=== PATIENT | female | born 1940 | race African-American/Black ===

== ENCOUNTER 2020-05-31 17:37 | Inpatient (IN) | payer MEDICARE ==
[2020-05-31 17:53] VITALS: BMI 23.1
[2020-05-31] MEDS ORDERED: Senokot S 8.6-50 MG TAB PO PRN (19:02)
[2020-05-31] MEDS ORDERED: Acetaminophen 325 MG TAB PO PRN (19:02)
[2020-05-31] MEDS ORDERED: Calcium Carbonate 500 MG ChewTAB PO PRN (19:03)
[2020-05-31] MEDS ORDERED: Ondansetron ODT 4 MG TAB PO PRN (19:03)
[2020-05-31] MEDS ORDERED: Dextrose 5% in Water 1,000 ML IV PRN (20:15)
[2020-05-31] MEDS ORDERED: Dextrose 50% Abboject 50 ML SYRINGE SLOW IVP PRN (20:15)
[2020-05-31] MEDS ORDERED: Insulin Regular 300 UNITS/3 ML VIAL SC PRN (20:15)
[2020-05-31] MEDS: HumuLIN 70/30 (300 UNITS/3 ML VIAL) SC SCH (21:47)
[2020-05-31] MEDS: Sacubitril 49 MG/Valsartan 51 MG TABLET PO SCH (21:48)
[2020-05-31] MEDS: Apixaban 5 MG TAB PO SCH (21:48)
--- NOTE | 2020-06-01 00:36 | HP ---
HISTORY OF PRESENT ILLNESS: Ms. Titus is a very pleasant 80-year-old black female, who lives in [place], [place]. She unfortunately fell at her grandson's house and had a resultant left femoral hip fracture. She was taken to emergency room, evaluated, and found to need open reduction and internal fixation done. The patient had a total hip done by Dr. Miranda and postoperatively she has actually done very well. She was transferred to inpatient rehab for physical therapy and occupational therapy at [facility] swing bed. PAST MEDICAL HISTORY: 1. Diabetes, type 2. 2. Hypertension. 3. Diastolic dysfunction with ejection fraction of 10% to 15%. 4. Atrial fibrillation. 5. Hypothyroidism. 6. Presently wearing a LifeVest, waiting on a cardiac defibrillator. PAST SURGICAL HISTORY: 1. Hysterectomy. 2. Total left hip. SOCIAL HISTORY: 1. Patient denies smoking, denies drinking, and denies drug use. 2. The patient lives with her son and is . She has actually been very active until she fell. ALLERGIES: NO KNOWN DRUG ALLERGIES. PRESENT MEDICATIONS: Reveal the patient is presently on the following. 1. Apixaban 5 mg b.i.d. 2. Fluoxetine 20 mg daily. 3. Lasix 40 mg q.a.m. 4. Humulin 70/30 15 units subcu b.i.d. 5. Metoprolol 50 mg b.i.d. 6. Potassium chloride 20 mEq q.a.m. 7. Entresto 49-51 half a tab b.i.d. 8. Spironolactone 12.5 mg q.a.m. 9. Tramadol 50 mg q.6 hours p.r.n. 10. Tylenol 1000 mg q.6 hours scheduled. REVIEW OF SYSTEMS: CONSTITUTIONAL: The patient states she is doing well and has no complaints of change in constitutional signs, including fever, chills, or night sweats. HEENT: The patient denies change in vision or hearing. CHEST: The patient denies shortness of breath, cough, cold, congestion, or wheezing. HEART: The patient denies palpitations, chest pain, or fast or slow heartbeat or irregular heartbeat. It is noted that the patient has ejection fraction of 10% to 15%, and has very poor stamina. ABDOMEN: Denies nausea, vomiting, diarrhea, or constipation. : Denies frequency or urgency. EXTREMITIES: Complains of less pain in her left hip since it has been repaired. PHYSICAL EXAMINATION: VITAL SIGNS: Reveal blood pressure 122/65, pulse 64, respirations 20, O2 saturation 99% on room air, and T-max 97.5. GENERAL: On physical exam, this is a well-developed, well-nourished, very pleasant 80-year-old black female, in no apparent distress at this time. HEENT EXAM: Reveals normocephalic and nontraumatic cranium. The pupils are equally round and reactive. Extraocular movements are intact. Nose and throat are slightly dry, but clear. NECK: Supple without masses, nodes, or bruits. CHEST: Clear to auscultation. No rales, no rhonchi, no wheezes, and no cough noted. HEART: Reveals a regular rate and rhythm, without murmurs, gallops, or rubs. ABDOMEN: Soft and nontender, without organomegaly. Normal bowel sounds are noted. No rebound or guarding is noted. EXTREMITIES: Reveal left hip, not very tender with sera, having no redness, oozing, or irritation. Open reduction internal fixation has already been done. NEUROLOGIC: No focal deficits. ASSESSMENT: 1. Left acute femoral neck fracture. 2. Diastolic congestive heart failure with ejection fraction of 10% to 15%. 3. LifeVest in place. 4. History of diabetes, type 2. 5. Hyperglycemia. 6. Hypertension. 7. Atrial fibrillation. 8. Hypothyroidism. PLAN: 1. The patient has been admitted to [facility] for physical therapy and occupational therapy. 2. We will continue present medications. 3. We will continue the patient's LifeVest to be worn at all times. 4. Stress ulcer prophylaxis. 5. Decubitus precautions. 6. DVT prophylaxis per Primary Service. 7. Physical therapy and occupational therapy. Job ID: [id number] MTDD
[2020-06-01] MEDS: Acetaminophen 500 MG TAB PO SCH ×5 (01:37→23:44)
[2020-06-01 05:17] LABS: #Basophils 0.1 thou/uL (0.0-0.2); #Eosinphils 0.3 thou/uL (0.0-0.7); #Lymphocytes 1.4 thou/uL (1.20-3.40); #Monocytes 0.8 thou/uL (0.11-0.59); #Neutrophils 3.2 thou/uL (1.40-6.50); %Basophils 2.2 % (0.0-1.0); %Eosinophils 5.6 % (0.0-10.0); %Lymphocytes 23.7 % (21.0-51.0); %Monocytes 12.9 % (0.0-10.0); %Neutrophils 55.6 % (42.0-75.0); Mean Corpuscular HGB CONC 31.4 g/dL (32.0-36.0); Mean Corpuscular Hemoglobin 27.3 pg (27.0-31.0); Mean Corpuscular Volume 87.1 fL (78.0-98.0); Mean Platelet Volume 8.5 fL (7.4-10.4); Platelet Count 362 thou/uL (130-400); RBC Distribution Width 11.8 % (11.5-14.5); Red Blood Cell (RBC) Count 3.67 mill/uL (4.20-5.40); White Blood Cell (WBC) Count 5.8 thou/uL (4.8-10.8)
[2020-06-01 05:37] LABS: ALT (SGPT) 7 U/L (8-55); AST (SGOT) 11 U/L (5-34); Albumin 3.5 g/dL (3.4-4.8); Alkaline Phosphatase 101 U/L (40-110); Anion Gap 15 mmol/L (10-20); BUN (Urea Nitrogen) 28 mg/dL (9.8-20.1); Bilirubin, Total 0.2 mg/dL (0.2-1.2); Calc. Creatinine Clearance 53 mL/min (70-130); Calcium 9.4 mg/dL (7.8-10.44); Carbon Dioxide 25 mmol/L (23-31); Chloride 99 mmol/L (98-107); Estimated GFR-MDRD 72; Globulin 3.8 g/dL (2.4-3.5); Glucose 130 mg/dL (83-110); Potassium 4.5 mmol/L (3.5-5.1); Protein, Total 7.3 g/dL (6.0-8.3); Sodium 134 mmol/L (136-145)
[2020-06-01] MEDS: traMADol HCl 50 MG TAB PO PRN ×2 (05:46→12:27)
[2020-06-01 06:26] LABS: Bilirubin Negative (Negative); Blood, Urine Negative (Negative); Clarity Clear (Clear); Glucose, Urine (Dipstick) Negative (Negative); Ketone, Urine Negative (Negative); Leukocyte Trace (Negative); Nitrite Negative (Negative); Protein, Urine (Dipstick) Negative (Neg-Trace)
[2020-06-01 06:30] LABS: Bacteria/HPF Rare-Few HPF (None Seen); RBC/HPF None Seen HPF (0-3); Squamous Epithelial 0-3 HPF (0-3)
[2020-06-01] MEDS: Spironolactone 25 MG TAB PO SCH (08:29)
[2020-06-01] MEDS: Apixaban 5 MG TAB PO SCH ×2 (08:29→21:04)
[2020-06-01] MEDS: Furosemide 40 MG TAB PO SCH (08:29)
[2020-06-01] MEDS: HumuLIN 70/30 (300 UNITS/3 ML VIAL) SC SCH ×2 (08:30→21:05)
[2020-06-01] MEDS: FLUoxetine HCl 20 MG CAP PO SCH (08:30)
[2020-06-01] MEDS: Sacubitril 49 MG/Valsartan 51 MG TABLET PO SCH ×2 (08:30→21:04)
--- NOTE | 2020-06-01 12:02 | PRG ---
DATE OF SERVICE: 06/01/2020 SUBJECTIVE: Ms. Titus is a very pleasant 80-year-old black female. She lives in [place] and fell when she was at her grandson's house with a resultant left femoral hip fracture. Taken to the emergency room and then taken to the surgical suite by Dr. Miranda. She had a total left hip done there. Postoperatively, she has done very well and was transferred here for physical therapy, occupational therapy, and pain management. The patient states she came in yesterday. She was still nervous and did not sleep very well last night, so she is somewhat tired this morning. She is waiting on therapy to come by to do her evaluation. She has no concerns or complaints. She states she is eating fairly well. OBJECTIVE: VITAL SIGNS: Today reveal blood pressure of 116/67, pulse 61 to 74, respirations 20, O2 saturation 99% to 100% on room air, T-max 98.2. GENERAL: On physical exam, this is a well-developed, well-nourished, thin, elderly black female, in no apparent distress at this time. HEENT: Reveals normocephalic and nontraumatic cranium. Pupils are equally round and reactive. Extraocular movements are intact. Nose and throat are slightly dry. NECK: Supple without masses, nodes, or bruits. CHEST: Clear to auscultation. No rales, rhonchi, wheezes, or cough is heard. HEART: Reveals a regular rate and rhythm without murmurs, gallops, or rubs. ABDOMEN: Soft and nontender without organomegaly. Normal bowel sounds are noted in all 4 quadrants. GENITOURINARY: Deferred. EXTREMITIES: Reveal left hip is not tender. Dusty are not red, oozing, or irritated. Open reduction and internal fixation have already been done on that left hip. NEUROLOGIC: No focal deficits. ASSESSMENT: 1. Diastolic congestive heart failure with ejection fraction of 10% to 15%. 2. LifeVest is in place. 3. History of diabetes type 2. 4. Acute left femoral neck fracture, status post open reduction and internal fixation. 5. Hyperglycemia. 6. Hypertension. 7. Atrial fibrillation. 8. Hypothyroidism. PLAN: 1. The patient is admitted to [facility] for physical therapy and occupational therapy. 2. We will continue present medications. 3. Continue to make sure she has a LifeVest on and appropriately placed at all times. 4. Stress ulcer prophylaxis. 5. Decubitus precautions. 6. DVT prophylaxis per primary service. 7. Physical therapy and occupational therapy. Job ID: [id number]
[2020-06-01] MEDS: Insulin Regular 300 UNITS/3 ML VIAL SC PRN (16:19)
[2020-06-02] MEDS: Acetaminophen 500 MG TAB PO SCH ×4 (05:48→23:27)
[2020-06-02] MEDS: Furosemide 40 MG TAB PO SCH (07:57)
[2020-06-02] MEDS: Spironolactone 25 MG TAB PO SCH (07:57)
[2020-06-02] MEDS: Apixaban 5 MG TAB PO SCH ×2 (07:58→20:58)
[2020-06-02] MEDS: HumuLIN 70/30 (300 UNITS/3 ML VIAL) SC SCH ×2 (07:58→20:59)
[2020-06-02] MEDS: FLUoxetine HCl 20 MG CAP PO SCH (07:58)
[2020-06-02] MEDS: Sacubitril 49 MG/Valsartan 51 MG TABLET PO SCH ×2 (07:59→20:58)
[2020-06-02] MEDS: traMADol HCl 50 MG TAB PO PRN ×2 (08:01→17:20)
[2020-06-02] MEDS: Insulin Regular 300 UNITS/3 ML VIAL SC PRN ×2 (11:46→17:17)
--- NOTE | 2020-06-02 18:18 | PRG ---
DATE OF SERVICE: 06/02/2020 SUBJECTIVE: Ms. Titus is a well-developed, well-nourished 80-year-old, somewhat frail black female who lives by herself. She was in [place] visiting her grandson when she had a fall. She had a resultant left femoral hip fracture. She was taken to the emergency room and then taken to the surgical suite by Dr. Miranda. She had a total left hip done and postoperatively was stabilized and transferred to [facility] for physical therapy, occupational therapy, and pain management. The patient states she is doing better and feeling little bit better. She was seen in her room and then 20 minutes later, she was seen walking down the resendez with physical therapy and occupational therapy. She has no concerns or complaints today. OBJECTIVE: VITAL SIGNS: Today reveal blood pressure 119/68, pulse 61 to 68, respirations 18, O2 saturation 98% to 100% on room air, T-max 98.2. GENERAL: This is a well-developed, well-nourished, thin black female, in no apparent distress at this time. HEENT: Reveals normocephalic and nontraumatic cranium. The pupils are equally round. The extraocular movements are intact. Nose and throat are clear. NECK: Supple without masses, nodes, or bruits. CHEST: Clear to auscultation without rales, rhonchi, wheezes, or cough. HEART: Reveals a regular rate and rhythm without murmurs, gallops, or rubs. ABDOMEN: Soft and nontender without organomegaly. Normal bowel sounds are noted in all 4 quadrants. : Deferred. EXTREMITIES: Reveal no clubbing, cyanosis, or edema. The left hip reveals the sera are not red, oozing, irritated, or tender. NEUROLOGIC: The patient has no focal deficits. ASSESSMENT: 1. Diastolic congestive heart failure with ejection fraction 10% to 15%. 2. LifeVest is in place. 3. History of diabetes type 2. 4. Acute left femoral neck fracture, status post open reduction and internal fixation by Dr. Miranda. 5. Hyperglycemia. 6. Hypertension. 7. Atrial fibrillation. 8. Hypothyroidism. PLAN: 1. The patient is admitted to [facility] for physical therapy and occupational therapy. 2. Continue to make sure that she wears a LifeVest on because of her 15% ejection fraction. 3. Continue present medications. 4. Stress ulcer prophylaxis. 5. Decubitus precautions. 6. DVT prophylaxis. 7. Physical therapy and occupational therapy. Job ID: [id number]
[2020-06-03] MEDS: Acetaminophen 500 MG TAB PO SCH ×3 (05:41→17:20)
[2020-06-03] MEDS: Furosemide 40 MG TAB PO SCH (08:30)
[2020-06-03] MEDS: Spironolactone 25 MG TAB PO SCH (08:30)
[2020-06-03] MEDS: Apixaban 5 MG TAB PO SCH ×2 (10:03→21:15)
[2020-06-03] MEDS: Sacubitril 49 MG/Valsartan 51 MG TABLET PO SCH ×2 (10:05→21:15)
[2020-06-03] MEDS: HumuLIN 70/30 (300 UNITS/3 ML VIAL) SC SCH ×2 (10:05→21:16)
[2020-06-03] MEDS: FLUoxetine HCl 20 MG CAP PO SCH (10:10)
[2020-06-03] MEDS: Insulin Regular 300 UNITS/3 ML VIAL SC PRN (11:48)
[2020-06-03] MEDS ORDERED: Dextrose 50% Abboject 50 ML SYRINGE SLOW IVP PRN (14:05)
[2020-06-03] MEDS ORDERED: HumaLOG 300 UNITS/3 ML VIAL SC PRN (14:05)
--- NOTE | 2020-06-03 14:52 | PRG ---
DATE OF SERVICE: 06/03/2020 SUBJECTIVE: Ms. Titus is a well-developed, well-nourished 80-year-old white female. She lives by herself and was visiting her son when she fell. She had a resultant left femoral hip fracture. She was seen by Dr. Miranda and taken to the surgical suite. She had a left total hip done and postoperatively was stabilized. She eventually was transferred to [facility] for PT/OT and for pain management. The patient states she is doing well and walking pretty well. She is eating well and actually has no concerns or complaints. Her sugars have been somewhat up and down. Usually, they are in the low 70s in the morning and then before lunch at 203, supper 180s, bedtime 190s. We will decrease her 70/30 and increase her sliding scale. OBJECTIVE: VITAL SIGNS: Today reveal blood pressure 132/63, pulse 63, respirations 18, O2 saturation 99% on room air, and T-max 97.4. GENERAL: On physical exam, this is a well-developed, well-nourished, very pleasant 80-year-old black female, in no apparent distress at this time. HEENT: Normocephalic and nontraumatic cranium. Pupils are equally round and reactive. Extraocular movements are intact. Nose and throat are slightly dry, but clear. NECK: Supple without masses, nodes, or bruits. CHEST: Clear to auscultation. No rales, no rhonchi, no wheezes are heard. HEART: Reveals a regular rate and rhythm without murmurs, gallops, or rubs. ABDOMEN: Soft and nontender without organomegaly. Normal bowel sounds are noted in all 4 quadrants. No rebound or guarding is noted. : Deferred. EXTREMITIES: Reveal no clubbing, cyanosis, or edema. Left hip still has stainless steel sera that are well-approximated, not oozing, not red and healing well. NEUROLOGIC: The patient has no focal deficits. The patient is doing very well with physical therapy. Today, she walked 200 feet, rested, and then walked 320 feet. Her balance is improving, and her stamina is slow, but surely getting better. ASSESSMENT: 1. Diastolic congestive heart failure with ejection fraction of 10% to 15%. 2. LifeVest in place. 3. History of diabetes type 2. 4. Acute femoral neck fracture, status post open reduction and internal fixation. 5. Hypertension. 6. Atrial fibrillation. 7. Hyperglycemia. 8. Hypothyroidism. 9. Generalized weakness. PLAN: 1. Continue to make sure the patient wears the LifeVest at all times. 2. Continue present medications. 3. Stress ulcer prophylaxis. 4. Decubitus precautions. 5. DVT prophylaxis. 6. Monitor the patient's blood pressure and adjust medications as needed. 7. Monitor the patient's diabetes with [facility] and h.s. 8. Physical therapy and occupational therapy. Job ID: [id number]
[2020-06-03] MEDS: traMADol HCl 50 MG TAB PO PRN (21:14)
[2020-06-04] MEDS: Acetaminophen 500 MG TAB PO SCH ×5 (00:31→23:41)
[2020-06-04 05:20] LABS: Hemoglobin 10.2 g/dL (12.0-16.0); Platelet Count 356 thou/uL (130-400)
[2020-06-04] MEDS: Sacubitril 49 MG/Valsartan 51 MG TABLET PO SCH ×2 (08:46→21:05)
[2020-06-04] MEDS: FLUoxetine HCl 20 MG CAP PO SCH (08:46)
[2020-06-04] MEDS: Apixaban 5 MG TAB PO SCH ×2 (08:47→21:05)
[2020-06-04] MEDS: Spironolactone 25 MG TAB PO SCH (08:47)
[2020-06-04] MEDS: Furosemide 40 MG TAB PO SCH (08:47)
[2020-06-04] MEDS: HumuLIN 70/30 (300 UNITS/3 ML VIAL) SC SCH ×2 (08:48→21:04)
[2020-06-04] MEDS: HumaLOG 300 UNITS/3 ML VIAL SC PRN ×2 (11:09→17:52)
--- NOTE | 2020-06-04 16:19 | PRG ---
DATE OF SERVICE: 06/04/2020 SUBJECTIVE: Ms. Titus is doing well. Denies any complaints. No family at bedside. Discussed with nursing. OBJECTIVE: VITAL SIGNS: She is afebrile. Heart rate 66, respirations 18, oxygen saturation 98% on room air, blood pressure 101/59. CARDIOVASCULAR: S1 and S2 plus. RESPIRATORY: Normal vesicular breath sounds. ABDOMEN: Soft, nontender. Bowel sounds heard in all quadrants. EXTREMITIES: Without cyanosis or clubbing. Left hip incision with dressing. CENTRAL NERVOUS SYSTEM: Generalized weakness, otherwise nonfocal. IMPRESSION: 1. Left hip fracture, status post surgical fixation. 2. Diabetes mellitus type 2. 3. Chronic combined congestive heart failure with ejection fraction of 10% to 15%. 4. . 5. Atrial fibrillation. 6. . PLAN: 1. Continue current medications. 2. Heart healthy diet. 3. Orthopedic precautions. 4. DVT prophylaxis. 5. Decubitus precautions. 6. Stress ulcer prophylaxis. 7. Therapy. 8. Routine lab values. Job ID: [id number]
[2020-06-05] MEDS: Acetaminophen 500 MG TAB PO SCH ×4 (05:33→23:55)
[2020-06-05] MEDS: HumuLIN 70/30 (300 UNITS/3 ML VIAL) SC SCH ×2 (08:29→20:50)
[2020-06-05] MEDS: Spironolactone 25 MG TAB PO SCH (08:30)
[2020-06-05] MEDS: Sacubitril 49 MG/Valsartan 51 MG TABLET PO SCH ×2 (08:30→20:53)
[2020-06-05] MEDS: Apixaban 5 MG TAB PO SCH ×2 (08:31→20:52)
[2020-06-05] MEDS: FLUoxetine HCl 20 MG CAP PO SCH (08:31)
[2020-06-05] MEDS: Furosemide 40 MG TAB PO SCH (08:31)
[2020-06-05] MEDS: HumaLOG 300 UNITS/3 ML VIAL SC PRN (12:46)
--- NOTE | 2020-06-05 16:52 | PRG ---
DATE OF SERVICE: 06/05/2020 SUBJECTIVE: Ms. Titus is up in her chair. She just finished her lunch. She denies any questions or concerns. OBJECTIVE: VITAL SIGNS: She is afebrile, heart rate is 63, respirations 18, oxygen saturation 99% on room air, and blood pressure 127/65. CARDIOVASCULAR SYSTEM: S1 and S2 plus. RESPIRATORY SYSTEM: Normal vesicular breath sounds. ABDOMEN: Soft, nontender. Bowel sounds heard in all quadrants. EXTREMITIES: Without cyanosis or clubbing. CENTRAL NERVOUS SYSTEM: Generalized weakness. LABORATORY VALUES: H and H are 10.2 and 31.7. Blood sugars are , 146, and 208. IMPRESSION: 1. Left hip fracture, status post surgical fixation. 2. Diabetes mellitus, type 2. 3. Ischemic cardiomyopathy. 4. Chronic combined congestive heart failure. 5. Hypertension. 6. Atrial fibrillation. 7. Hypothyroidism. PLAN: 1. Continue current medications. 2. Heart healthy, ADA diet. 3. Accu-Cheks with sliding-scale coverage. 4. DVT prophylaxis. 5. Decubitus precautions. 6. Stress ulcer prophylaxis. 7. Incision care. 8. Physical therapy. 9. Routine laboratory values. 10. Dr. Aura werner [facility]. Job ID: [id number]
[2020-06-06] MEDS: Acetaminophen 500 MG TAB PO SCH ×4 (05:52→23:50)
[2020-06-06] MEDS: Spironolactone 25 MG TAB PO SCH (08:23)
[2020-06-06] MEDS: Furosemide 40 MG TAB PO SCH (08:23)
[2020-06-06] MEDS: Apixaban 5 MG TAB PO SCH ×2 (08:23→21:12)
[2020-06-06] MEDS: FLUoxetine HCl 20 MG CAP PO SCH (08:23)
[2020-06-06] MEDS: Sacubitril 49 MG/Valsartan 51 MG TABLET PO SCH ×2 (08:24→21:15)
[2020-06-06] MEDS: HumuLIN 70/30 (300 UNITS/3 ML VIAL) SC SCH ×2 (08:29→21:14)
[2020-06-06] MEDS: HumaLOG 300 UNITS/3 ML VIAL SC PRN (12:28)
--- NOTE | 2020-06-06 13:57 | PRG ---
DATE OF SERVICE: 06/06/2020 SUBJECTIVE: Ms. Titus is a well-developed, well-nourished 80-year-old black female. She lives by herself, was visiting her son when she fell. She had a resultant left femoral hip fracture and was seen by Dr. Miranda. He took her to the surgical suite and did a total left hip on her. Postoperatively, she did fairly well and stabilized. She eventually was transferred to [facility] for PT/OT and pain relief. The patient states she had a nice quite weekend, spent most of the time in her room. She states she is having a little pain with her hip today, seems a little more stove up. Sugars are much improved and she only had one out of the last four that was in the 200s. OBJECTIVE: VITAL SIGNS: Today reveal blood pressure this morning 135/69, pulse 60 to 74, respirations 20, and O2 saturation 98% to 99% on room air. Sugars yesterday reveal fasting 146, before lunch 208, before supper 137, before bedtime 176, and fasting this morning was 113. GENERAL: This is a well-developed, well-nourished, pleasant, thin black female, in no apparent distress at this time. HEENT: Normocephalic and nontraumatic cranium. Pupils are equally round and reactive. Extraocular movements are intact. Nose and throat are slightly dry, but clear. NECK: Supple without masses, nodes, or bruits. CHEST: Clear to auscultation. No rales, rhonchi, wheezes, or cough is heard. HEART: Regular rate and rhythm without murmurs, gallops, or rubs. ABDOMEN: Soft and nontender. Normal bowel sounds are noted in all 4 quadrants. No rebound or guarding is noted. : Deferred. EXTREMITIES: No clubbing, cyanosis, or edema. Left hip is somewhat achy today, not red and not draining. ASSESSMENT: 1. Diastolic congestive heart failure with ejection fraction 10% to 15%. 2. LifeVest in place. 3. History of diabetes type 2, much better controlled. 4. Acute femoral neck fracture status post open reduction and internal fixation. 5. Hypertension. 6. Atrial fibrillation. 7. Hyperglycemia. 8. Hypothyroidism. 9. Generalized weakness. 10. Pain. PLAN: 1. Continue to make sure the patient wears a LifeVest appropriately at all times. 2. Continue present medications. 3. Stress ulcer prophylaxis. 4. Decubitus precautions. 5. DVT prophylaxis. 6. Monitor the patient's blood pressure and adjust medications as needed. 7. Monitor the patient's diabetes with Accu-Cheks a.c. and at bedtime. 8. Continue physical therapy and occupational therapy. Job ID: [id number]
[2020-06-07] MEDS: Acetaminophen 500 MG TAB PO SCH ×4 (05:04→23:36)
[2020-06-07 05:51] LABS: Band 9 % (5-11); Eosinophils 8 % (0-10); Hemoglobin 9.8 g/dL (12.0-16.0); Lymphocytes 40 % (21-51); MDiff Complete? YES; Mean Corpuscular HGB CONC 36.3 g/dL (32.0-36.0); Mean Corpuscular Hemoglobin 32.1 pg (27.0-31.0); Mean Corpuscular Volume 88.6 fL (78.0-98.0); Mean Platelet Volume 8.8 fL (7.4-10.4); Metamyelocyte 1 % (0-0); Monocytes 2 % (0-10); Neutrophil 40 % (42-75); Platelet Count 309 thou/uL (130-400); Platelet Morphology Comment Appears Adequate; RBC Morphology Normal; Red Blood Cell (RBC) Count 3.04 mill/uL (4.20-5.40); White Blood Cell (WBC) Count 4.5 thou/uL (4.8-10.8)
[2020-06-07 05:52] LABS: ALT (SGPT) 9 U/L (8-55); AST (SGOT) 10 U/L (5-34); Albumin 3.5 g/dL (3.4-4.8); Alkaline Phosphatase 99 U/L (40-110); Anion Gap 14 mmol/L (10-20); BUN (Urea Nitrogen) 32 mg/dL (9.8-20.1); Bilirubin, Total 0.2 mg/dL (0.2-1.2); Calc. Creatinine Clearance 58 mL/min (70-130); Carbon Dioxide 23 mmol/L (23-31); Chloride 103 mmol/L (98-107); Estimated GFR-MDRD 80; Globulin 3.5 g/dL (2.4-3.5); Glucose 120 mg/dL (83-110); Potassium 4.1 mmol/L (3.5-5.1); Sodium 136 mmol/L (136-145)
[2020-06-07] MEDS: HumuLIN 70/30 (300 UNITS/3 ML VIAL) SC SCH ×2 (08:31→20:14)
[2020-06-07] MEDS: Apixaban 5 MG TAB PO SCH ×2 (08:31→20:13)
[2020-06-07] MEDS: FLUoxetine HCl 20 MG CAP PO SCH (08:32)
[2020-06-07] MEDS: Spironolactone 25 MG TAB PO SCH (08:32)
[2020-06-07] MEDS: Furosemide 40 MG TAB PO SCH (08:32)
[2020-06-07] MEDS: Sacubitril 49 MG/Valsartan 51 MG TABLET PO SCH ×3 (08:33→20:15)
[2020-06-07] MEDS: traMADol HCl 50 MG TAB PO PRN ×2 (08:37→20:12)
--- NOTE | 2020-06-07 10:27 | PRG ---
DATE OF SERVICE: 06/07/2020 SUBJECTIVE: Ms. Titus is an 80-year-old very pleasant black female. She was at her grandson's house when she fell. She had a resultant left femoral hip fracture. Dr. Miranda took her to the surgical suite and did a total hip on her. Postoperatively, she has done fairly well stabilized. She was transferred to [facility]. Continue physical therapy, occupational therapy, and pain relief. Yesterday, she did walk twice. One, she was at 250 feet and the other time at 450 feet. Her BNP was 221. Hemoglobin 9.8 and 27.0 hematocrit. Her creatinine is 0.83. Sugar 127. OBJECTIVE: VITAL SIGNS: Today reveal blood pressure 157/72, pulse 79 to 84, respirations 18 to 20, O2 saturations 97% to 100%, T-max 98.6. GENERAL: This is a well-developed, well-nourished, very pleasant black female, in no apparent distress at this time. HEENT: Reveals normocephalic and nontraumatic cranium. Pupils are equally round and reactive. Extraocular movements are intact. Nose and throat are slightly dry. NECK: Supple without masses, nodes, or bruits. CHEST: Clear to auscultation. No rales, rhonchi, or wheezes are heard. HEART: Reveals a regular rate and rhythm. Rate controlled. ABDOMEN: Soft and nontender without organomegaly. Normal bowel sounds are noted. No rebound or guarding is noted. : Deferred. EXTREMITIES: Reveal no clubbing, cyanosis, or edema. Left hip is somewhat achy today, not red or draining. ASSESSMENT: 1. Diastolic congestive heart failure with ejection fraction 10% to 15%. 2. LifeVest in place. 3. History of diabetes type 2. 4. Acute femoral neck fracture, status post open reduction and internal fixation. 5. Hypertension. 6. Atrial fibrillation. 7. Hyperglycemia. 8. Hypothyroidism. 9. Generalized weakness. 10. Pain. PLAN: 1. Continue to encourage the patient to wear LifeVest at all times. 2. Continue present medications. 3. Stress ulcer prophylaxis. 4. Decubitus precautions. 5. Monitor the patient's heart rate for RVR. 6. Continue to monitor the patient's blood pressure closely and adjust medications as needed. 7. Continue to monitor the patient's diabetes with Accu-Cheks a.c. and at bedtime. 8. Continue physical therapy and occupational therapy. 9. The patient will be evaluated today. Hopefully, we will get an estimated discharge date. Job ID: [id number] MTDD
[2020-06-07] MEDS ORDERED: Ondansetron ODT 4 MG TAB SL PRN (11:00)
[2020-06-07] MEDS: HumaLOG 300 UNITS/3 ML VIAL SC PRN (11:30)
[2020-06-08] MEDS: Acetaminophen 500 MG TAB PO SCH ×3 (05:34→17:46)
[2020-06-08] MEDS: Apixaban 5 MG TAB PO SCH ×2 (09:11→20:36)
[2020-06-08] MEDS: Spironolactone 25 MG TAB PO SCH (09:11)
[2020-06-08] MEDS: Furosemide 40 MG TAB PO SCH (09:12)
[2020-06-08] MEDS: FLUoxetine HCl 20 MG CAP PO SCH (09:12)
[2020-06-08] MEDS: Sacubitril 49 MG/Valsartan 51 MG TABLET PO SCH ×2 (09:12→20:35)
[2020-06-08] MEDS: HumuLIN 70/30 (300 UNITS/3 ML VIAL) SC SCH ×2 (09:13→20:35)
[2020-06-08] MEDS: HumaLOG 300 UNITS/3 ML VIAL SC PRN (12:44)
--- NOTE | 2020-06-08 14:34 | PRG ---
DATE OF SERVICE: 06/08/2020 SUBJECTIVE: Ms. Titus is a well-developed, very thin, but very pleasant 80-year-old black female. She fell at her grandson's house. She had a resultant left femoral hip fracture. She was taken by Dr. Miranda to the surgical suite and he did a total hip on her. Postoperatively, she was very weak, but transferred to [facility] for PT, OT, and pain management. The patient continues to do well and she states her pain is much better. She thinks she walked 400 feet yesterday. OBJECTIVE: VITAL SIGNS: Today reveal blood pressure is 106/59, pulse 71 to 78, respirations 18, O2 saturation 98% on room air, T-max 98.0. GENERAL: This is a well-developed, well-nourished, very pleasant, thin, black female, in no apparent distress at this time. HEENT: Reveals normocephalic and nontraumatic cranium. Pupils equally round and reactive. Extraocular movements are intact. Nose and throat are slightly dry. NECK: Supple without masses, nodes, or bruits. CHEST: Clear to auscultation. No rales, rhonchi, or wheezes are heard. HEART: Reveals a regular rate and rhythm. She has a rate controlled. She does have atrial fibrillation. ABDOMEN: Soft, nontender without organomegaly. Normal bowel sounds are noted. No rebound or guarding is noted. : Deferred. EXTREMITIES: Reveal no clubbing, cyanosis, or edema. Left hip is somewhat achy, but not red or draining. ASSESSMENT: 1. Diastolic congestive heart failure with ejection fraction 10% to 15%. 2. LifeVest in place. 3. History of diabetes type 2. 4. Acute femoral neck fracture, status post open reduction and internal fixation. 5. Hypertension. 6. Atrial fibrillation. 7. Hyperglycemia. 8. Hypothyroidism. 9. Generalized weakness. PLAN: 1. Continue to encourage the patient to wear LifeVest at all times. 2. Continue present medications. 3. Stress ulcer prophylaxis. 4. Decubitus precautions. 5. Monitor the patient's heart rate for RVR. 6. Continue to monitor the patient's blood pressure closely and adjust medications as needed. 7. Monitor the patient's diabetes with Accu-Cheks a.c. and at bedtime. 8. Continue PT and OT. 9. The patient is doing well and is expected to go home Saturday afternoon. 10. The patient will be covered by Dr. Adams or Dr. Haines. Job ID: [id number]
[2020-06-09] MEDS: Acetaminophen 500 MG TAB PO SCH ×5 (00:19→23:36)
[2020-06-09] MEDS: HumuLIN 70/30 (300 UNITS/3 ML VIAL) SC SCH ×2 (08:46→20:19)
[2020-06-09] MEDS: Apixaban 5 MG TAB PO SCH ×2 (08:47→20:19)
[2020-06-09] MEDS: Sacubitril 49 MG/Valsartan 51 MG TABLET PO SCH ×2 (08:47→20:19)
[2020-06-09] MEDS: Spironolactone 25 MG TAB PO SCH (08:47)
[2020-06-09] MEDS: Furosemide 40 MG TAB PO SCH (08:47)
[2020-06-09] MEDS: FLUoxetine HCl 20 MG CAP PO SCH (08:47)
[2020-06-09] MEDS: traMADol HCl 50 MG TAB PO PRN (09:50)
--- NOTE | 2020-06-09 10:14 | PRG ---
DATE OF SERVICE: 06/09/2020 SUBJECTIVE: Ms. Titus is doing well. She is getting ready to work with therapy. She is able to ambulate with the help of a walker with minimal assistance. Pain is controlled. OBJECTIVE: VITAL SIGNS: She is afebrile. Heart rate 62, respirations 18, oxygen saturation 99% on room air, and blood pressure 136/76. CARDIOVASCULAR: S1 and S2 plus. RESPIRATORY: Normal vesicular breath sounds. ABDOMEN: Soft and nontender. Bowel sounds heard in all quadrants. EXTREMITIES: Without cyanosis or clubbing. Bilateral valgus deformity noted. IMPRESSION: 1. Left hip fracture, status post surgical fixation. 2. Diabetes mellitus type 2. 3. Chronic combined congestive heart failure. 4. Hypertension. 5. Hypothyroidism. 6. Atrial fibrillation. PLAN: 1. Continue current medications. 2. Heart healthy diet. 3. Monitor heart rate and rhythm. 4. Accu-Cheks with sliding scale coverage. 5. DVT prophylaxis. 6. Decubitus precaution. 7. Stress ulcer prophylaxis. 8. Physical therapy. 9. Routine laboratory values. Job ID: [id number]
[2020-06-09] MEDS: HumaLOG 300 UNITS/3 ML VIAL SC PRN (12:42)
[2020-06-10] MEDS: Acetaminophen 500 MG TAB PO SCH ×2 (05:15→12:07)
[2020-06-10 05:31] LABS: Hemoglobin 9.7 g/dL (12.0-16.0); Platelet Count 274 thou/uL (130-400)
--- NOTE | 2020-06-10 07:37 | PRG ---
DATE OF SERVICE: 06/10/2020 SUBJECTIVE: Ms. Titus is sleeping, but arousable. She denies any questions or concerns. She is happy with her progress. She is hoping to go home soon. OBJECTIVE: VITAL SIGNS: She is afebrile, heart rate 72, respirations 18, oxygen saturation 99% on room air, blood pressure 129/71. CARDIOVASCULAR: S1 and S2 plus. RESPIRATORY: Normal vesicular breath sounds. ABDOMEN: Soft and nontender. Bowel sounds heard in all quadrants. EXTREMITIES: Without cyanosis or clubbing. CENTRAL NERVOUS SYSTEM: Generalized weakness, otherwise nonfocal. LABORATORY DATA: H and H are 9.7 and 31.4. Creatinine is 0.80. Blood sugars are 133, 193, 135. IMPRESSION: 1. Left hip fracture, status post surgical fixation. 2. Diabetes mellitus type 2. 3. Chronic combined congestive heart failure. 4. Hypertension. 5. Hypothyroidism. 6. Atrial fibrillation. PLAN: 1. Continue current medications. 2. Heart healthy diet. 3. Monitor heart rate and rhythm. 4. DVT prophylaxis-she is on Eliquis. 5. Decubitus precautions. 6. Stress ulcer prophylaxis. 7. Orthopedic precautions and incision care. 8. Physical therapy. 9. Dr. Adams on-call this weekend. Job ID: [id number]
[2020-06-10 08:14] VITALS: TEMP 98.9
[2020-06-10] MEDS: Sacubitril 49 MG/Valsartan 51 MG TABLET PO SCH (08:21)
[2020-06-10] MEDS: FLUoxetine HCl 20 MG CAP PO SCH (08:21)
[2020-06-10] MEDS: Spironolactone 25 MG TAB PO SCH (08:22)
[2020-06-10] MEDS: Furosemide 40 MG TAB PO SCH (08:22)
[2020-06-10] MEDS: Apixaban 5 MG TAB PO SCH (08:22)
[2020-06-10] MEDS: HumuLIN 70/30 (300 UNITS/3 ML VIAL) SC SCH (08:25)
[2020-06-10 10:55] VITALS: BP 131/64
== END 2020-06-10 15:26 | disposition home or self-care (01) | DRG 560 ==
LOC: NAV ACUTE 17:37
PROVIDERS: ADMIT Family Medicine; ATTEND Family Medicine
DX: Z47.89 Encounter for other orthopedic aftercare (principal); I50.42 Chronic combined systolic (congestive) and diastolic (congestive) heart failure; I11.0 Hypertensive heart disease with heart failure; E11.65 Type 2 diabetes mellitus with hyperglycemia; I25.5 Ischemic cardiomyopathy; E03.9 Hypothyroidism, unspecified; I48.91 Unspecified atrial fibrillation; Z90.710 Acquired absence of both cervix and uterus; Z79.899 Other long term (current) drug therapy
CPT/HCPCS: 36415; 36416; 80053; 81001; 82565; 83880; 85014; 85018; 85025; 85049; J1815; Q0162